=== PATIENT | female | born 1980 | race Caucasian/White ===

== ENCOUNTER 2020-08-05 18:46 | Emergency (ER) | payer OTHER, MEDICAID ==
[~2020-08-05] VITALS: Ht 162.5 cm; Wt 59.9 kg
[2020-08-05 19:31] LABS: BASO % 0.4 % (0.0-1.0); EOS # 0.2 10*3/uL (0.0-0.4); EOS % 2.1 % (1.0-4.0); HEMATOCRIT 41.6 % (37.0-47.0); LYMPH # 3.2 10*3/uL (1.3-4.4); LYMPH % 43.6 % (27.0-41.0); MEAN CELL VOLUME 86.3 fl (81.0-99.0); MEAN CORPUSCULAR HGB 28.2 pg (27.0-31.0); MEAN CORPUSCULAR HGB CONC 32.7 g/dl (33.0-37.0); MEAN PLATELET VOLUME 10.3 fl (9.6-12.3); MONO # 0.6 10*3/uL (0.1-1.0); MONO % 7.9 % (3.0-9.0); NEUT # 3.4 10*3/uL (2.3-7.9); NEUT % 45.9 % (47.0-73.0); PLATELET COUNT AUTOMATED 240 10*3/uL (130-400); RED BLOOD COUNT 4.82 10*6/uL (4.10-5.10); RED CELL DISTRI WIDTH 13.3 % (0-14.5); WHITE BLOOD COUNT 7.3 10*3/uL (4.8-10.8)
[2020-08-05 19:46] LABS: ALBUMIN 3.7 gm/dl (3.1-4.5); ALKALINE PHOSPHATASE 88 U/L (45-117); BUN 21 mg/dl (7-24); CHLORIDE 107 mmol/L (98-107); CREATININE 0.71 mg/dL (0.55-1.02); POTASSIUM 3.6 mmol/L (3.5-5.1); SGOT/AST 22 IU/L (3-35); SGPT/ALT 35 U/L (12-78); SODIUM 141 mmol/L (136-145); TOTAL PROTEIN 7.3 gm/dL (6.4-8.2)
[2020-08-05] MEDS ORDERED: PROAIR HFA8.5 GM INH (21:13)
== END 2020-08-05 22:06 | disposition home or self-care (01) ==
LOC: ED 18:46
PROVIDERS: Student in an Organized Health Care Education/Training Program
DX: U07.1 COVID-19 (principal); F17.200 Nicotine dependence, unspecified, uncomplicated